=== PATIENT | female | born 1960 | race Caucasian/White ===

== ENCOUNTER 2017-08-28 16:25 | Emergency (ER) | payer SELFPAY ==
[2017-08-28] MEDS ORDERED: diphenhydrAMINE 25 MG CAP ONE (17:04)
[2017-08-28] MEDS ORDERED: Loperamide HCl 2 MG CAP ONE ×2 (17:04)
[2017-08-28] MEDS ORDERED: Ketorolac Tromethamine 60 MG/2 ML VIAL ONE (17:04)
[2017-08-28] MEDS ORDERED: Metoclopramide HCl 10 MG/2 ML VIAL ONE (17:04)
== END 2017-08-28 17:20 | disposition home or self-care (01) ==
LOC: MADERS 16:25
DX: R19.7 Diarrhea, unspecified (principal); R51 Headache; F41.9 Anxiety disorder, unspecified
CPT/HCPCS: 96372; J1885; J2765